=== PATIENT | male | born 1940 | race Two or more races ===

== ENCOUNTER → 2023-05-17 | Day surgery (SDC) | payer OTHER ==
[2023-05-17] VITALS (17 sets, daily range): BP systolic 120–164; BP diastolic 51–74; PULSE 71–86; RESP 15–16
[~2023-05-17] VITALS: Ht 180.3 cm; Wt 90.7 kg
[~2023-05-17] MED LIST: AMLO-257 PO; CITA-107 PO; FLUT1AER IH; IOHEXOL-350 50ML VIAL IV ONE; KETAMINE 50MG/ML SYRINGE 50 MG/ML DISP.SYRIN ONE; LEVO112T7 PO; LIDOCAINE PF 100MG/5ML (2%) SYRINGE 5ML ONE; NITR0.4T50 SL; OXYB5TAB20 PO; PANT40TA54 PO; PROPOFOL 10 MG/ML 20ML VIAL IV ONE; SOLI10TA PO; SUCCINYLCHOLINE CHLORIDE 20 MG/ML 10 ML VIAL ONE; [UNRECOGNIZED DRUG - CODE] IV
[2023-05-17] MEDS: INDOMETHACIN 100 MG SUPP.RECT RC ONE (18:27)
[2023-05-18 12:40] VITALS: BP 145/60; PULSE 77; RESP 16
== END | disposition home or self-care (01) ==
LOC: EDSTATUS 13:59 → DAH 14:09
PROVIDERS: ATTEND Internal Medicine Gastroenterology
DX: R74.8 Abnormal levels of other serum enzymes (principal); C16.2 Malignant neoplasm of body of stomach; C16.3 Malignant neoplasm of pyloric antrum; K83.8 Other specified diseases of biliary tract; K83.1 Obstruction of bile duct; I25.10 Atherosclerotic heart disease of native coronary artery without angina pectoris; I10 Essential (primary) hypertension; J44.9 Chronic obstructive pulmonary disease, unspecified; E11.9 Type 2 diabetes mellitus without complications; E78.5 Hyperlipidemia, unspecified; K21.9 Gastro-esophageal reflux disease without esophagitis; I25.2 Old myocardial infarction; Z79.899 Other long term (current) drug therapy; Z86.718 Personal history of other venous thrombosis and embolism; Z79.01 Long term (current) use of anticoagulants; Z87.891 Personal history of nicotine dependence; Z98.890 Other specified postprocedural states
CPT/HCPCS: 43260; 88305; 88312; 88342; 74328; 88341; 93005; 43239; J0330; J2001; J2704; Q9967; J3490; A4215; A4223; A4657; A7002; A4222; A4216; J7030; A4606; C1769; 74330